=== PATIENT | female | born 1995 | race Caucasian/White ===

== ENCOUNTER 2022-04-05 16:37 | Outpatient (CLI) | payer OTHER, SELFPAY ==
[2022-04-05 17:51] LABS: Basophils Absolute Auto 0.1 K/mm3 (0.0-0.1); Basophils Percent Auto 0.5 % (0.2-1.2); Eosinophils Absolute Auto 0.1 K/mm3 (0-0.3); Eosinophils Percent Auto 1.3 % (0-4.4); Hematocrit 42.3 % (37.0-47.0); Hemoglobin 13.8 g/dL (12.0-15.0); Immature Granulocyte Absolute 0.03 K/mm3 (0.00-0.031); Immature Granulocyte Percent A 0.3 % (0-0.5); Lymphocytes Absolute Auto 2.21 K/mm3 (0.9-3.2); Lymphocytes Percent Auto 22.9 % (18.3-44.2); Mean Corpuscular HGB Conc 32.6 g/dl (32-36); Mean Corpuscular Hemoglobin 30.7 pg (26-34); Mean Platelet Volume 9.9 fl (7.4-10.4); Monocytes Absolute Auto 0.5 K/mm3 (0.1-0.6); Monocytes Percent Auto 5.4 % (2.6-8.5); Neutrophils Absolute Auto 6.7 K/mm3 (1.3-6.7); Neutrophils Percent Auto 69.6 % (45.5-73.1); Platelet Count Result 337 k/mm3 (150-375); Red Cell Distribution Width 12.2 % (11.5-14.5); White Blood Count 9.7 K/mm3 (4.5-10.0)
[2022-04-05 18:02] LABS: Alanine Aminotransferase 22 U/L (6-35); Alkaline Phosphatase 87 U/L (38-126); Anion Gap 7 mmol/L (8-16); Aspartate Amino Transferase 32 U/L (14-36); Bilirubin,Total 0.4 mg/dL (0.2-1.3); Blood Urea Nitrogen 16 mg/dL (7-17); Carbon Dioxide 31 mmol/L (22-30); Chloride 99 mmol/L (98-107); Estimated Glomerular Filt Rate > 60; Glucose 133 mg/dL (65-110); Potassium 4.2 mmol/L (3.4-5.0); Sodium 137 mmol/L (137-145)
[2022-04-05 18:59] LABS: Thyroid Stimulating Hormone Reflex 0.951 uIU/mL (0.465-4.68)
== END 2022-04-05 16:38 | disposition home or self-care (01) ==
DX: R53.83 Other fatigue (principal)
CPT/HCPCS: 36415; 80053; 84443; 85025

== ENCOUNTER 2022-06-20 10:45 | Emergency (ER) | payer OTHER, SELFPAY ==
[2022-06-20] VITALS (52 sets, daily range): BP systolic 63–117; BP diastolic 45–75; PULSE 58–109; RESP 14–29; TEMP 36.6; O2SAT 97–100
--- NOTE | ~2022-06-20 | CT_ITS ---
EXAMINATION: CT brain wo con DATE: 06/20/2022 15:55 INDICATION: Syncope. TECHNIQUE: Computed tomography (CT) of the head was performed without intravenous contrast. The mA wa s adjusted according to patient size. Iterative reconstruction technique was employed. The dose-lengt h product was 605.33 mGy-cm. COMPARISON: None FINDINGS: There is no intracranial hemorrhage, acute infarction, or abnormal intracranial mass lesion . The ventricles are normal in size. There is mild mucosal thickening in the paranasal sinuses. The m astoid air cells are normal. The orbits are normal. IMPRESSION: 1. Normal brain. Reviewed, dictated and finalized at location A. OL BOAT DRIVER IMPRESSION: 1. Normal brain.
--- NOTE | 2022-06-20 11:33 | ECG_ITS ---
Measurements Intervals [place] Rate: 69 P: 51 UT: 157 QRS: 68 QRSD: 77 T: 35 QT: 381 QTc: 411 Interpretive Statements SINUS RHYTHM NO PREVIOUS ECG AVAILABLE FOR COMPARISON Electronically Signed On 06-20-2022 15:31:45 TOY DESIGNER by Ady Daigle M.D.
[2022-06-20 11:49] LABS: Basophils Absolute Auto 0.1 K/mm3 (0.0-0.1); Basophils Percent Auto 1.3 % (0.2-1.2); Eosinophils Absolute Auto 0.1 K/mm3 (0-0.3); Eosinophils Percent Auto 2.6 % (0-4.4); Hematocrit 40.6 % (37.0-47.0); Hemoglobin 13.4 g/dL (12.0-15.0); Immature Granulocyte Absolute 0.01 K/mm3 (0.00-0.031); Immature Granulocyte Percent A 0.2 % (0-0.5); Lymphocytes Absolute Auto 1.63 K/mm3 (0.9-3.2); Lymphocytes Percent Auto 35.3 % (18.3-44.2); Mean Corpuscular Hemoglobin 30.7 pg (26-34); Mean Corpuscular Volume 93.1 fl (80-100); Mean Platelet Volume 9.4 fl (7.4-10.4); Monocytes Absolute Auto 0.5 K/mm3 (0.1-0.6); Neutrophils Absolute Auto 2.3 K/mm3 (1.3-6.7); Neutrophils Percent Auto 50.6 % (45.5-73.1); Platelet Count Result 275 k/mm3 (150-375); Red Blood Count 4.36 M/mm3 (4.2-5.4); Red Cell Distribution Width 12.3 % (11.5-14.5); White Blood Count 4.6 K/mm3 (4.5-10.0)
[2022-06-20 12:00] LABS: Alanine Aminotransferase 20 U/L (6-35); Albumin Level 4.7 g/dL (3.5-5.1); Alkaline Phosphatase 75 U/L (38-126); Anion Gap 5 mmol/L (8-16); Aspartate Amino Transferase 28 U/L (14-36); Bilirubin,Total 0.4 mg/dL (0.2-1.3); Blood Urea Nitrogen 14 mg/dL (7-17); Calcium 9.3 mg/dL (8.4-10.2); Carbon Dioxide 29 mmol/L (22-30); Chloride 104 mmol/L (98-107); Estimated CRCL calculation 114 ml/min; Estimated Glomerular Filt Rate > 60; Glucose 95 mg/dL (65-110); Potassium 4.5 mmol/L (3.4-5.0); Sodium 138 mmol/L (137-145)
--- NOTE | 2022-06-20 12:24 | ED.SYNCOPE ---
HPI - Syncope General Chief Complaint: Syncope Stated Complaint: syncopal episode Time Seen by Provider: 06/20/22 11:33 Source: patient and family Mode of arrival: EMS Limitations: no limitations History of Present Illness HPI narrative: This is a 27-year-old female that presents to the emergency department for a syncopal episode. Reports history of similar episodes in the past and a diagnosis of POTS. She was having a bowel movement when she started to feel lightheaded and passed out. She does not believe she hit her head. No other prodromal symptoms. Denies chest pain, shortness of breath, or palpitations. Related Data Allergies Allergy/AdvReac Type Severity Reaction Status Date / Time No Known Allergies Allergy Unverified 04/07/18 17:48 Review of Systems Review of Systems: CONSTITUTIONAL: Denies fever CARDIOVASCULAR: Denies chest pain, palpitations, or edema. RESPIRATORY: Denies dyspnea. GASTROINTESTINAL: Denies vomiting NEUROLOGIC: Denies numbness, or weakness. All systems reviewed & are unremarkable except as noted in HPI and below PMFSH Past Medical History Medical History (Updated 06/20/22 @ 14:36 by Theresa Sales PA-C) POTS (postural orthostatic tachycardia syndrome) Social History Social History (Updated 06/20/22 @ 12:25 by Theresa Sales PA-C) Smoking status: Never smoker Substance use: never Exam Narrative: GENERAL: Well-appearing, well-nourished, and in no acute distress. HEAD: Normocephalic, atraumatic. EYES: PERRLA and EOMI. ENT: Nares clear, no rhinorrhea or epistaxis. Mucous membranes moist. Oropharynx without tonsillar hypertrophy exudate or other lesions. Bilateral TMs pearly coffey non-bulging NECK: Supple. No adenopathy or masses. CHEST: Clear to auscultation. No respiratory distress. No wheezes rales or rhonchi HEART: Regular rate and rhythm. No murmur heard. Normal peripheral pulses. ABDOMEN: Soft, nontender, nondistended, normal active bowel sounds. EXTREMITIES: Normal range of motion. No edema. Strength equal in bilateral upper and lower extremities (5/5) SKIN: Warm, dry, no rash. NEURO: No focal deficits. Alert and oriented x3. CN II-XII grossly intact PSYCH: Normal mood and affect Course Course Emergency Course: Patient and family updated on workup. Resting comfortably Vital Signs Vital signs: Vital Signs Temperature 97.8 F 06/20/22 10:58 Pulse Rate 85 06/20/22 10:58 Respiratory Rate 18 06/20/22 10:58 Blood Pressure 117/73 06/20/22 10:58 Pulse Oximetry 100 06/20/22 10:58 Oxygen Delivery Room Air 06/20/22 10:58 Temperature 97.8 F 06/20/22 10:58 Pulse Rate 86 06/20/22 16:28 Respiratory Rate 26 H 06/20/22 16:26 Blood Pressure 111/75 06/20/22 16:28 Pulse Oximetry 100 06/20/22 16:25 Oxygen Delivery Room Air 06/20/22 10:58 MDM - Syncope MDM Narrative Medical decision making narrative: Patient presents to the emergency department after syncopal episode today. Reports history of similar instances. Reports a diagnosis of POTS for which she follows with a gear shaper. Orthostatic upon arrival. She is neurologically intact. CBC and metabolic panel without concerning findings. EKG is without concerning changes and her baseline troponin is negative. Bedside test is negative. CT scan of the brain without concerning findings. Patient hydrated with IV fluids with relief. Repeat orthostats are much improved. Able to ambulate with a steady gait. Patient and family were updated on work-up. Instructed to follow-up with her doctor. She was given warnings to return to the ER Differential Diagnosis Differential diagnosis: Likely syncope due to orthostatic hypotension, vasovagal syncope and dehydration Lab Data Attestation: I reviewed the patient's lab results. 06/20/22 11:43 06/20/22 11:43 Labs: Lab Results 06/20/22 06/20/22 06/20/22 Range/Units 11:42 11:43 11:43 WBC 4.6 (4.5-10.0
[2022-06-20] MEDS: SODIUM CHLORIDE 0.9% IV 1,000 ML 999 ML IV CONT ×2 (12:37→14:49)
[2022-06-20 15:16] LABS: Troponin I < 0.012 ng/mL (0.000-0.034)
== END 2022-06-20 17:24 | disposition home or self-care (01) ==
PROVIDERS: Emergency Provider Physician Assistant
DX: I95.1 Orthostatic hypotension (principal); G90.A Postural orthostatic tachycardia syndrome [POTS]
CPT/HCPCS: 36415; 70450; 80053; 81025; 84484; 85025; 93005; 96360; 96361; 99284; J7030

== ENCOUNTER 2022-07-26 13:22 | Outpatient (CLI) | payer OTHER, SELFPAY ==
[2022-07-26 14:10] LABS: Vitamin D 25 Hydroxy 56.2 ng/mL
== END 2022-07-26 13:23 | disposition home or self-care (01) ==
DX: E55.9 Vitamin D deficiency, unspecified (principal)
CPT/HCPCS: 36415; 82306

== ENCOUNTER 2022-08-23 09:58 | Outpatient (RCR) | payer OTHER, SELFPAY ==
--- NOTE | 2022-08-23 10:58 | PTOPEVAL1 ---
Assessment and note entered by Verónica Bobo, PT Evaluation Information Assessment Status Evaluation Diagnosis dizziness/ positional vertigo Onset October 2021 Subjective Information started having dizziness last summer; have postural orthostatic tachycardia syndrome (POTS)- have symptoms of it, including dizziness, ease by lie down, takes varying time to recover, sometimes faint; saw in Jun, had dizziness almost all the time, now not have very often; have onset of dizziness: standing and lean over to pick something up- random occurances, ease in few minutes; usually feels like little earthquake in body; sometimes when going to sit to stand and when walking; NO issues with: rolling over in bed, Reported Pain Level Pain Score 2: Self Report Additional Pain Score Comments neck pain, into base of head and shoulders; go to chiropractor once/wk; Assessment PT Clinical Summary Sparkle has the diagnosis of BPPV/ vestibular. She went to ER in Jun due to syncopy and dehydration. Head CT was negative. Her medical history includes: postural orthostatic tachycardia syndrome (POTS), IBS, neck and back pain, migraines, polyarthralgia and takes multiple meds. Her PT order is dated June. She reports at that time, she had dizziness almost all the time, but now rarely have it. Usually is is related to her POTS. With the vestibular testing, she did not have any s/s. Education was provided and handouts issued for general vestibular education, BPPV, safety with mobility and transfers. Skilled PT services are indicated for PRN treatment, if the BPPV symtoms return. Plan of Care Interventions Hot Pack/Cold Pack,Neuro Re-education,Patient/ Caregiver Education,Therapeutic Activities, Therapeutic Exercise PT Services Indicated Yes Treatment Frequency and 0-2x/wk for 4 weeks Duration These treatments will address the objective and functional deficits as defined above. The patient will be advanced safely and appropriately in order for the patient to progress towards his/her prior level of function. Additional exercises will be introduced and as well as a comprehensive home exercise program upon discharge, if needed, ?to ensure carryover of functional gains achieved in the clinic. Thi
--- NOTE | 2022-10-02 14:54 | PTOPDC ---
Assessment and note entered by Verónica Bobo, PT Evaluation Information Assessment PT Clinical Summary Ms. Desai has not returned since the initial evaluation on 08-23-22 for the diagnosis of BPPV. Therefore, she will be discharged at this time. Plan of Care PT Services Indicated No
== END 2022-10-03 14:10 | disposition home or self-care (01) ==
LOC: ANHPT 09:58
DX: H81.12 Benign paroxysmal vertigo, left ear (principal)
CPT/HCPCS: 97161

== ENCOUNTER 2022-10-31 10:37 | Emergency (ER) | payer OTHER, SELFPAY ==
[2022-10-31 10:50] VITALS: BP 129/75; PULSE 73; RESP 16; TEMP 36.2; O2SAT 100
[2022-10-31 10:59] VITALS: BP 129/75; PULSE 73; RESP 16; TEMP 36.2; O2SAT 100
--- NOTE | 2022-10-31 11:06 | ED.ABDPAIN ---
HPI - Abdominal Pain General Chief Complaint: Abdominal Pain Stated Complaint: abdominal discomfort Time Seen by Provider: 10/31/22 10:58 Source: patient and RN notes reviewed Mode of arrival: ambulatory Limitations: no limitations History of Present Illness HPI narrative: Patient presents today complaining of upper abdominal pain and tightness that occasionally shoots down the right side of her abdomen. Symptoms began yesterday. Patient states, ?I think it's an ulcer. ? Denies fever, nausea, vomiting, diarrhea. Patient had a normal bowel movement this morning. She currently rates her pain 5/10 and started omeprazole yesterday without much relief. Denies history of ulcers, but does report some history of acid reflux in the past, but does not use any acid reducing medications on a daily basis. Related Data Home Medications Medication Instructions Recorded Confirmed L norgest/E estradiol-E estrad 1 tablet PO DAILY 10/31/22 10/31/22 0.15 mg-30 mcg (84)/10 mcg(7) tabs,3mos (Ashlyna) fludrocortisone 0.1 mg tablet 0.1 mg PO DAILY 10/31/22 10/31/22 metoprolol succinate 25 mg 50 mg PO DAILY 10/31/22 10/31/22 tablet,extended release 24 hr sertraline 100 mg tablet 200 mg PO DAILY 10/31/22 10/31/22 Allergies Allergy/AdvReac Type Severity Reaction Status Date / Time caffeine AdvReac Intermediate Nausea Verified 10/31/22 10:58 midodrine AdvReac Intermediate Dizziness Verified 10/31/22 10:59 Review of Systems Review of Systems: CONSTITUTIONAL: Denies body aches, fever, chills, or sweats. EYES: Denies visual changes, redness, or discharge. ENT: Denies rhinorrhea, congestion, sore throat, or otalgia. CARDIOVASCULAR: Denies chest pain, palpitations, or edema. RESPIRATORY: Denies cough or dyspnea. GASTROINTESTINAL: Denies nausea, vomiting, or diarrhea.+ abdominal pain GENITOURINARY: Denies dysuria or hematuria. SKIN: Denies rash, itching, or wounds. MUSCULOSKELETAL: Denies back pain, joint pain, or myalgia. NEUROLOGIC: Denies headache, numbness, tingling, or weakness. PSYCH: Denies depression or anxiety. [facility] Past Medical History Medical History POTS (postural orthostatic tachycardia syndrome) Social History Social History Smoking status: Never smoker Substance use: never Comments At time of signature, I have reviewed and agree with nursing past medical, surgical, social and family history unless otherwise noted. Please see nursing chart for further information. There is no relevant family history pertinent to the presenting complaint Exam Narrative: GENERAL: Well-appearing, well-nourished, and in no acute distress. HEAD: Normocephalic, atraumatic. EYES: EOMI. No redness or drainage. Conjunctivae normal. ENT: Mucous membranes pink and moist. NECK: Normal AROM. CHEST: No respiratory distress. Clear to auscultation. HEART: Regular rate and rhythm. No murmur appreciated. Normal peripheral pulses. ABDOMEN: Soft, nondistended, normal active bowel sounds. Tenderness to the epigastrium and right upper quadrant with rebound. No guarding. EXTREMITIES: Normal range of motion. No edema. SKIN: Warm, dry, no rash. Capillary refill normal. Normal skin turgor. NEURO: No focal deficits. Alert and oriented x3. Gait steady. PSYCH: Normal affect. No signs of depression or anxiety. Course Course Level of Care: Express Care Visit Vital Signs Vital signs: Vital Signs Temperature 97.1 F L 10/31/22 10:50 Pulse Rate 73 10/31/22 10:50 Respiratory Rate 16 10/31/22 10:50 Blood Pressure 129/75 10/31/22 10:50 Pulse Oximetry 100 10/31/22 10:50 Oxygen Delivery Room Air 10/31/22 10:50 Temperature 97.1 F L 10/31/22 10:59 Pulse Rate 73 10/31/22 10:59 Respiratory Rate 16 10/31/22 10:59 Blood Pressure 129/75 10/31/22 10:59 Pulse Oximetry 100 10/31/22 10:
== END 2022-10-31 11:16 | disposition short-term general hospital (02) ==
PROVIDERS: Emergency Provider Nurse Practitioner
DX: R10.13 Epigastric pain (principal); R10.11 Right upper quadrant pain
CPT/HCPCS: 99212; G0463

== ENCOUNTER 2022-10-31 11:32 | Emergency (ER) | payer OTHER, SELFPAY ==
--- NOTE | ~2022-10-31 | CT_ITS ---
CT of the Abdomen and Pelvis: Indication: Abdominal pain Technique: 2.5 mm axial scans were obtained through the abdomen and pelvis following intravenous adm inistration of 100 cc of Omnipaque 350. Dose reduction technique was used on this scan by utilizing a utomated exposure control and iterative reconstruction technique. The dose-length product (DLP) was 3 75.06 mGy-cm. Findings: Scans through the lung bases are unremarkable. Hepatic parenchyma is somewhat diffusely heterogeneous, without discrete nodule. There is mild peripo rtal edema. There is marked, diffuse gallbladder wall thickening with small gallstones present. The s pleen, pancreas, adrenals and kidneys are within normal limits. No evidence of aortic aneurysm. No lymphadenopathy. No bowel obstruction or bowel wall thickening. There is no evidence to suggest acute appendicitis. Images through the pelvis were performed. Urinary bladder unremarkable. No adnexal mass seen. Trace p elvic ascites present. Impression: Diffusely heterogeneous hepatic parenchyma. This is a nonspecific finding. Correlate for infectious/i nflammatory hepatitis. Cholelithiasis. Diffuse gallbladder wall thickening. This could reflect acute cholecystitis, versus reactive thickeni ng due to underlying hepatitis. Correlate clinically. Consider HIDA scan as indicated to evaluate for cystic duct patency. Reviewed, dictated and finalized at location M. Impression: Diffusely heterogeneous hepatic parenchyma. This is a nonspecific finding. Ilir elate for infectious/inflammatory hepatitis. Cholelithiasis. Diffuse gallbladder wall thickening. This could reflect acute cholecystitis, ve rsus reactive thickening due to underlying hepatitis. Correlate clinically. Con cognos developer HIDA scan as indicated to evaluate for cystic duct patency.
--- NOTE | ~2022-10-31 | US_ITS ---
EXAMINATION: US abdomen limited DATE: 10/31/2022 12:20 INDICATION: Right upper quadrant pain TECHNIQUE: Multiple grayscale and Doppler ultrasound images of the abdomen were obtained. COMPARISON: None available FINDINGS: The head and body of the pancreas are normal. The pancreatic tail is obscured by bowel gas. The liver is normal with normal echogenicity and echotexture. No surface nodularity. Normal hepatope dennis flow in the main portal vein. Stones are present in the gallbladder which is contracted. No defin ite evidence of gallbladder wall thickening or pericholecystic fluid. The normal common bile duct lauro sures 4 mm. There was no sonographic Rosenthal sign. IMPRESSION: 1. Cholelithiasis without definite additional findings of cholecystitis. Reviewed, dictated and finalized at location []
[2022-10-31 11:40] VITALS: BP 124/80; PULSE 64; RESP 18; TEMP 36.3; O2SAT 100
[2022-10-31 11:54] LABS: Appearance Urine Clear (Clear); Bacteria Urine Rare /hpf; Bilirubin Urine Negative (Negative); Blood Urine Negative (Negative); Color Urine Yellow (Yellow); Glucose Urine UA Negative (Negative); Ketones Urine Negative (Negative); Leukocyte Esterase Ur 3+ LEU/UL (Negative); Nitrate Urine Negative (Negative); Non Pathogenic Casts 0-2; Protein Urine Negative (Negative); RBC Urine 0-2 /hpf (0-2); Specific Grav Ur 1.006 (1.001-1.035); Squamous Epithelial Cell Urine None seen /hpf (Few); Urobilinogen Urine 0.2 mg/dL (<2.0); pH Urine 7.5 (5.0-9.0)
[2022-10-31 12:04] LABS: Basophils Absolute Auto 0.1 K/mm3 (0.0-0.1); Basophils Percent Auto 0.7 % (0.2-1.2); Eosinophils Absolute Auto 0.1 K/mm3 (0-0.3); Eosinophils Percent Auto 1.5 % (0-4.4); Hematocrit 35.5 % (37.0-47.0); Hemoglobin 11.4 g/dL (12.0-15.0); Immature Granulocyte Absolute 0.02 K/mm3 (0.00-0.031); Immature Granulocyte Percent A 0.3 % (0-0.5); Lymphocytes Absolute Auto 1.58 K/mm3 (0.9-3.2); Lymphocytes Percent Auto 23.2 % (18.3-44.2); Mean Corpuscular HGB Conc 32.1 g/dl (32-36); Mean Corpuscular Hemoglobin 30.5 pg (26-34); Mean Corpuscular Volume 94.9 fl (80-100); Mean Platelet Volume 10.3 fl (7.4-10.4); Monocytes Absolute Auto 0.5 K/mm3 (0.1-0.6); Monocytes Percent Auto 6.9 % (2.6-8.5); Neutrophils Absolute Auto 4.6 K/mm3 (1.3-6.7); Neutrophils Percent Auto 67.4 % (45.5-73.1); Platelet Count Result 262 k/mm3 (150-375); Red Blood Count 3.74 M/mm3 (4.2-5.4); Red Cell Distribution Width 13.2 % (11.5-14.5); White Blood Count 6.8 K/mm3 (4.5-10.0)
[2022-10-31 12:06] LABS: Add Urine Microscopic? YES
--- NOTE | 2022-10-31 12:06 | ED.ABDPAIN ---
HPI - Abdominal Pain General Chief Complaint: Abdominal Pain Stated Complaint: abdominal pain Time Seen by Provider: 10/31/22 11:51 History of Present Illness HPI narrative: Patient is a 27-year-old female here for evaluation of right-sided abdominal pain x2 days. Patient states the pain is present in her right upper and right lower quadrant. It seems to get better after she eats and then comes back about 20 minutes after her meals. She denies any nausea, vomiting, fevers or chills. No diarrhea, constipation, dysuria, urgency or frequency. She was referred from urgent care given tenderness in the right lower quadrant. Related Data Home Medications Medication Instructions Recorded Confirmed L norgest/E estradiol-E estrad 1 tablet PO DAILY 10/31/22 10/31/22 0.15 mg-30 mcg (84)/10 mcg(7) tabs,3mos (Ashlyna) fludrocortisone 0.1 mg tablet 0.1 mg PO DAILY 10/31/22 10/31/22 metoprolol succinate 25 mg 50 mg PO DAILY 10/31/22 10/31/22 tablet,extended release 24 hr sertraline 100 mg tablet 200 mg PO DAILY 10/31/22 10/31/22 sumatriptan succinate 50 mg tablet 50 mg PO PRN PRN Migraine Headache 10/31/22 10/31/22 Allergies Allergy/AdvReac Type Severity Reaction Status Date / Time caffeine AdvReac Intermediate Nausea Verified 10/31/22 11:46 midodrine AdvReac Intermediate Dizziness Verified 10/31/22 11:46 Review of Systems Review of Systems: Gen: Denies fevers or chills Eyes: Denies eye pain or visual change ENT: Denies congestion Respiratory: Denies shortness of breath or cough CV: Denies chest pain or palpitations GI: Reports abdominal pain : denies burning, urgency, frequency or hematuria Musculoskeletal: Denies back pain or muscle pain Neuro: Denies numbness, tingling, weakness or focal weakness Skin: Denies rash Except as documented, all other systems reviewed and negative [facility] Past Medical History Medical History POTS (postural orthostatic tachycardia syndrome) Social History Social History Smoking status: Never smoker Substance use: never Exam Narrative: APPEARANCE: Well appearing, no pain in distress, well-nourished. Head: Normocephalic and atraumatic. EYES: PERRLA/EOMI, conjunctivae clear NOSE: No nasal drainage EARS: External ear normal in appearance THROAT: Oropharynx is clear. Mucous membranes are moist. NECK: Supple. No adenopathy, no masses. RESPIRATORY: Airway patent, respirations nonlabored. Clear to auscultation bilaterally, no rales, rhonchi, wheezing. CARDIOVASCULAR: Regular rate and rhythm without murmurs, rubs, or gallops. ABDOMINAL: There is tenderness to palpation in the right lower quadrant with some guarding. No rebound tenderness. MUSCULOSKELETAL: Extremities are warm and well-perfused. Moves all extremities well. No edema. NEURO: Normal speech. No focal neurologic deficits. SKIN: Skin is warm and dry. No rashes. PSYCHIATRIC: Normal affect/mood. Course Vital Signs Vital signs: Vital Signs Temperature 97.4 F L 10/31/22 11:40 Pulse Rate 64 10/31/22 11:40 Respiratory Rate 18 10/31/22 11:40 Blood Pressure 124/80 10/31/22 11:40 Pulse Oximetry 100 10/31/22 11:40 Oxygen Delivery Room Air 10/31/22 11:40 Temperature 97.4 F L 10/31/22 11:40 Pulse Rate 57 L 10/31/22 14:37 Respiratory Rate 16 10/31/22 14:37 Blood Pressure 127/81 10/31/22 14:37 Pulse Oximetry 98 10/31/22 14:37 Oxygen Delivery Room Air 10/31/22 11:40 MDM - Abdominal Pain MDM Narrative Medical decision making narrative: 27-year-old female here for evaluation of several days of right-sided abdominal discomfort. She is nontoxic in appearance and has normal vital signs but does have significant tenderness in the right upper quadrant with some involuntary guarding. Her white blood cell count is 6.8. Her LFTs are normal. Abdomen pelvis CT w
[2022-10-31 12:13] LABS: Alanine Aminotransferase 21 U/L (6-35); Albumin Level 4.5 g/dL (3.5-5.1); Alkaline Phosphatase 49 U/L (38-126); Anion Gap 7 mmol/L (8-16); Aspartate Amino Transferase 25 U/L (14-36); Bilirubin,Total 0.4 mg/dL (0.2-1.3); Blood Urea Nitrogen 14 mg/dL (7-17); Calcium 9.5 mg/dL (8.4-10.2); Carbon Dioxide 28 mmol/L (22-30); Chloride 106 mmol/L (98-107); Estimated CRCL calculation 115 ml/min; Estimated Glomerular Filt Rate > 60; Glucose 89 mg/dL (65-110); Lipase 61 U/L (23-300); Potassium 3.8 mmol/L (3.4-5.0); Sodium 141 mmol/L (137-145)
[2022-10-31] MEDS: KETOROLAC 15 MG/ML VIAL (*BKC) IV PUSH (12:55)
[2022-10-31 13:38] LABS: Hepatitis B Surface Antigen Negative (Negative)
[2022-10-31 13:44] LABS: HAV RESULT Negative (Negative); Hepatitis B Core IgM Result Negative (Negative)
[2022-10-31] MEDS: MORPHINE SULFATE (*CRX) 2 MG/ML INJ IV PUSH (13:49)
[2022-10-31 13:56] VITALS: BP 129/86; PULSE 56; RESP 16; O2SAT 94
[2022-10-31 13:56] LABS: Hepatitis C Virus Antibody Negative (Negative)
[2022-10-31 14:37] VITALS: BP 127/81; PULSE 57; RESP 16; O2SAT 98
== END 2022-10-31 14:38 | disposition home or self-care (01) ==
PROVIDERS: Emergency Medicine; Emergency Provider Physician Assistant
DX: K81.9 Cholecystitis, unspecified (principal)
CPT/HCPCS: 36415; 74177; 76705; 80053; 80074; 81001; 81025; 83690; 85025; 87086; 87088; 96374; 96375; 99284; J1885; J2270; Q9967